=== PATIENT | female | born 1990 | race African-American/Black ===

== ENCOUNTER 2021-06-27 20:37 | Emergency (ER) | payer SELFPAY ==
[2021-06-27 21:45] VITALS: BP 132/76
== END 2021-06-27 21:40 | disposition left against medical advice (07) ==
LOC: EDBD → ED 20:37
DX: O26.891 Other specified pregnancy related conditions, first trimester (principal); R10.9 Unspecified abdominal pain; Z53.21 Procedure and treatment not carried out due to patient leaving prior to being seen by health care provider; Z3A.12 12 weeks gestation of pregnancy